=== PATIENT | male | born 1965 | race Caucasian/White ===

== ENCOUNTER 2023-12-25 08:59 | Outpatient (CLI) | payer OTHER, SELFPAY | END 2023-12-25 09:00 | disposition home or self-care (01) | LOC: AMB 12-30 07:32 | PROVIDERS: Visit Provider Student in an Organized Health Care Education/Training Program | DX: R55 Syncope and collapse (principal) | CPT/HCPCS: A0998 ==

== ENCOUNTER 2025-03-12 13:49 | Outpatient (CLI) | payer SELFPAY | END 2025-03-12 13:50 | disposition home or self-care (01) | LOC: AMB 03-15 11:24 | PROVIDERS: PCP Family Medicine; Visit Provider Student in an Organized Health Care Education/Training Program | DX: R07.89 Other chest pain (principal) | CPT/HCPCS: A0425; A0427 ==

== ENCOUNTER 2025-03-12 14:22 | Emergency (ER) | payer SELFPAY ==
--- OUTSIDE RECORDS SUMMARY | 2025-03-12 14:24 | XMS_ITS | Clinical Summary ---
Author Organization [facility] Address [address] [place] [id number] Care Team Providers Care [employer]obile Le[employer] Supervisor Name Role Phone Antonio Dailey MD Primary Care Provider [phone] Allergies Active Allergy Reactions Criticality Noted Date Comments Ampicillin Hives 04/17/2019 Azithromycin Palpitations 01/07/2024 Couch dizziness, heightened anxiety like symptoms within minutes of taking the dose Medications losartan 25 mg tabletIndications :Essential hypertension Take 1 Tablet (25 mg) by mouth once daily. 90 Tablet 12/23/2024 Active amLODIPine 5 mg tabletIndications :Essential hypertension Take 1 Tablet (5 mg) by mouth once daily. 90 Tablet 12/23/2024 Active Active Problems Problem Noted Date Diagnosed Date Right knee pain 07/10/2019 Adenomatous colon polyp 07/10/2019 Overview (07/10/2019): Colonoscopy 06/2019 polyp, repeat in 5 years Essential hypertension 06/26/2019 Overview (06/26/2019): Started on Amlodipine on 06/26/2019. Lateral epicondylitis of right elbow 06/26/2019 Stress fracture, right tibia , subsequent encounter for fracture with routine healing 05/15/2019 Encounters Date Type Department Care Team Description 12/22/2024 Refill [facility] [place] [address] [place] [address] Antonio Dailey MD Refill Request (Amlodipine, Losartan) from Last 3 Months Immunizations Immunization Administration Dates Next Due COVID-19 vaccine (Stockleap 30mcg/0.3mL) P F, MDV 07/17/2021,12/24/2020 Influenza, IIV4 05/20/2020 Influenza, Injectable, Mdck, Quadrivalent, W/preservative 06/22/2022,05/20/2021 Tdap 02/09/2024 Zoster (Shingrix-RZV, recombinant) 02/09/2024, Family History Medical History Relation Name Comments Heart attack Father Cancer-colon Maternal Grandfather Dementia Maternal Grandmother Cancer-colon Other Relation Name Status Comments Father Alive Maternal Grandfather Maternal Grandmother Other Social History Tobacco Use Types Packs/Day Years Used Date Smoking Tobacco: Never Passive Smoke Exposure: Never Smokeless Tobacco: Never Tobacco Cessation:Counseling Given: Yes Alcohol Use Standard Drinks/Week Comments Never 0 (1 standard drink = 0.6 oz pur e alcohol) PHQ-2 Answer Date Recorded PHQ-2 TOTAL SCORE 1 02/09/2024 Social Connections Answer Date Recorded Do you often feel lonely or isolated from those around you? 0 01/07/2024 Financial Resource Strain Answer Date R ecorded Difficulty of Paying Living Expenses 3 01/07/2024 Difficulty of Paying Living Expenses Not on file 01/07/2024 Food Insecurity Answer Date Recorded Do you worry your food will run out before you are able to buy more? 1 01/07/2024 Transportation Needs Answer Date Record ed Does lack of transportation keep you from medica l appointments? 1 01/07/2024 Does lack of transportation keep you from work, meetings or getting things that you need? 1 01/07/2024 Housing Stability Answer Date Recorded What is your housing situation today? 1 01/07/2024 Utilities Answer Date Recorded Do you have trouble paying f or utilities (for example, heat, electricity, water, phone)? 1 01/07/2024 Sex and Gender Information Value Date Recorded Sex Assigned at Not on file Legal Sex Male 1:17 PM CDT Gender Identity Not on file Sexual Orientation Not on file Obstetrics History Last Filed Vital Signs Vital Sign Reading Time Taken Comments Blood Pressure 130/80 05/05/2024 1:21 PM CDT Pulse 61 05/05/2024 12:53 PM CDT Temperature 36.4 C (97.5 F) 02/09/2024 9:10 AM CDT Respiratory Rate 20 05/15/2019 1:30 PM CDT Oxygen Saturation 98% 05/05/2024 12: 53 PM CDT Inhaled Oxygen Concentration - - Weight 127.8 kg (281 lb 12.8 oz) 2023 12:53 PM CDT Height 178.3 cm (5' 10.2) 05/05/2024 1 2:53 PM CDT Body Mass Index 40.2 05/05/2024 12:53 PM CDT Plan of Treatment Health Maintenance Due Date Last Done Comments HIV for age 15-65 1981 Hepatitis C screening for ag e 18-79 1984 Hepatitis B series for 19+ ( 1 of 3 - 19+ 3-dose series) 1985 Pneumococcal series for age 50+ (1 of 1 - PCV) 2016 COVID-19 vaccine series ( season) 2024 06/22/2022, 07/17/2021, 12/24/2020 Lipids for age 45-75 05/11/2024 05/11/2019 Colonoscopy through age 75 07/07/202407/07, 07/07/2019, 07/07/2019 Depression screening for age 12+ 02/08/2025 02/09/20 24, 07/24/2019 Influenza Vaccine (#1) 2025 2, 05/20/2021, 05/20/2020 BMI (ht and wt on same day) for age 18+ 05/05/2025 05/05/2024, 02/09/2024, 09/11/2019, Additional history exists Tetanus booster 02/08/2034 02/09/2024 Zoster (shingles) series for age 50+ Completed 02/09/2024, 07/31/2019 Procedures Procedure Name Priority Date/Time Associated Diagnosis Comments COLONOSCOPY SCREENING Routine 07/07/2019 8:30 AM CONCERT OR LECTURE HALL MANAGER Screening for colon cancer LIPID PANEL W REFLEX MEASURED LDL Routine 05/11/2019 7:34 AM CDT Lipid screening from Last 3 Months or Most Recently Relevant to Health Maintenance Results * COLONOSCOPY SCREENING (07/07/2019 8:30 AM CONCERT OR LECTURE HALL MANAGER) us Antonio Dailey MD GI PROCEDURE ORD Final Res ult * (ABNORMAL) LIPID PANEL W REFLEX MEASURED LDL (05/11/2019 7:34 AM CDT) CHOLESTEROL,TOTAL 208(H) 100 - 199 mg/dL 05/11/2019 3:32 PM CDT [facility] TRIGLYCERIDES 163(H) <150 mg/dL 05/11/2019 3:32 PM CDT [facility] HDL CHOLESTEROL 49 >40 mg/dL 9 3:32 PM CDT [facility] NON-HDL CHOLESTEROL 159(H) <145 mg/dl 05/11/2019 3:32 PM CDT [facility] CHOL/HDL RATIO 4.24 <4.50 05/11/2019 3:32 PM CDT [facility] LDL CHOLESTEROL 126 <=130 mg/dL 05/11/2019 3:32 PM CDT [facility] PROVIDER ORDERED STATUS RANDOM 05/11/2019 3:32 PM CDT [facility] Blood BLOOD SPECIMEN / Unknown Venipuncture / Unknown 05/11/2019 7:34 AM CDT 05/11/2019 7:34 AM CDT us Antonio Dailey MD CHEMISTRY Final Resu lt [facility] [address] [place] [address], [place] from Last 3 Months or Most Recently Relevant to Health Maintenance Insurance BLUE CROSS OF NON-MA-ITS Care Teams Automobile Leasing Supervisor Relationship Specialty Start Date End Date Antonio Dailey MD [address] [place] [address] PCP - General Family Practice 04/05/19
[2025-03-12 14:34] VITALS: BP 166/97; PULSE 63; RESP 18; TEMP 36.1; O2SAT 96; BMI 36.6
--- NOTE | 2025-03-12 14:44 | CRLHL7_ITS ---
For Patients: As a result of the Cures Act, medical imaging exams and procedure reports are released immediately into your electronic medical record. You may view this report before your referring provider. If you have questions, please contact your health care provider. INDICATION: Chest pain and palpitations COMPARISON: None. TECHNIQUE: PA and lateral 2 view chest. FINDINGS: Lung volumes are good. No focal or diffuse opacities. No pulmonary edema. No pleural effusion. No pneumothorax. No pneumomediastinum. Normal cardiomediastinal silhouette. Bones: Thoracic dish. Degenerative change in the spine. No acute appearing finding. IMPRESSION: Lungs clear. No acute appearing findings. Dictated by Shannon Mcgrath MD @ 03/12/2025 3:49:10 PM (Electronically Signed)
--- NOTE | 2025-03-12 14:52 | ED.CHESTPAIN ---
HPI - Chest Pain General Date Seen: 03/12/25 Chief Complaint: Chest Pain Stated Complaint: Chest pain Time Seen by Provider: 03/12/25 14:25 Source: patient and EMS Mode of arrival: EMS Limitations: no limitations History of Present Illness HPI narrative: Patient is a 59-year-old male with a history of hypertension presenting to the emergency department for chest pain. He states he was coming in from fishing when he started to notice some jaw pain bilaterally. He then started speaking to someone on the phone and started having some midsternal pressure sensation in his chest. Denies ever having pain like this before but states his father had a previous DC and states he describes the symptoms as similar so he called the ambulance. Took some aspirin at home and states the chest pain only last about 10 or 15 minutes in the jaw pain was gone by the time he got into the ambulance. Overall symptoms started about 2 hours prior to my conversation with the patient. He denies any associated shortness of breath, headache, lightheadedness, dizziness, weakness, numbness, abdominal pain, fevers, chills, dysuria, shoulder pain. Pain did not seem to radiate anywhere else. States he is now feeling asymptomatic. Only medical issue is hypertension and sees his primary care provider at least once a year. No other concerns noted Related Data Home Medications ?Medication ?Instructions ?Recorded ?Confirmed chlorpheniramine-dextromethorp PO 12/25/23 12/25/23 [[facility] NyQuil Cold-C] dextromethorphan polistirex PO 12/25/23 12/25/23 [Robitussin ER] amlodipine 5 mg tablet 5 mg PO DAILY 03/12/25 03/12/25 losartan 25 mg tablet 25 mg PO DAILY 03/12/25 03/12/25 Previous Rx's ?Medication ?Instructions ?Recorded benzonatate 200 mg capsule 200 mg PO QHS PRN cough #10 caps 12/25/23 Allergies Allergy/AdvReac Type Severity Reaction Status Date / Time azithromycin (From Zithromax) Allergy panic Verified 03/12/25 14:38 attacks Penicillins Allergy Verified 03/12/25 14:38 Review of Systems Status of ROS Reports: 10 or more systems reviewed and unremarkable except as noted in History and below PFSH PFSH Social History Smoking Status: Never smoker Do you use any of these nicotine containing products: None Second hand tobacco smoke exposure: No How often do you have a drink containing alcohol: monthly or less How often do you have six or more drinks on one occasion: Never AUDIT-C Alcohol total score: 1 Non-prescribed substance use: denies use service: No Exam Narrative Exam Narrative: Const: Well-nourished, Well-developed, in no distress Eyes: PERRL, no conjunctival injection, and symmetrical lids HENT: Atraumatic external nose and ears. Moist mucous membranes. Neck: Symmetric, trachea midline, No thyromegaly. CVS: RRR, No murmurs or gallops. Peripheral pulses 2+ and equal in all extremities RESP: Unlabored respiratory effort. Clear to auscultation bilaterally. GI: Nontender/Nondistended, No rebound or guarding. MSK:Extremities w/o deformity, Normal Active ROM Skin: Warm, Dry. No rashes or lesions. Neuro: Normal Muscle tone, No focal neurological deficits. Psych: Awake, Alert, & Oriented x3. Appropriate mood and affect. Const Vital Signs, click to edit/add: Vital Signs - 24 hr 03/12/25 14:34 03/12/25 15:18 Temperature 97.0 F L 97.8 F Pulse Rate [Pulse Oximeter] 63 60 Respiratory Rate 18 16 Blood Pressure [Left Upper Arm] 166/97 H 134/82 Pulse Oximetry 96 97 Oxygen Delivery Method Room Air Room Air Course Vital Signs Vital signs: Initial Vital Signs Temperature 97.0 F L 03/12/25 14:34 Temperature Source Temporal Artery Scan 03/12/25 14:34 Pulse Rate 63 03/12/25 14:34 Pulse Rhythm Regular 03/12/25 14:34 Respiratory Rate 18 03/12/25 14:34 Blood Pressure 166/97 H 03/12/25 14:34 Blood Pressure Mean 120 H 03/12/25 14:34 Blood Pressure Position Supine 03/12/25 14:34 Pulse Oximetry 96 03/12/25 14:34 Oxygen Delivery Method Room Air 03/12/25 14:34 Vital Signs Temperature 97.0 F L 03/12/25 14:34 Pulse Rate 63 03/12/25 14:34 Respiratory Rate 18 03/12/25 14:34 Blood Pressure 166/97 H 03/12/25 14:34 Pulse Oximetry 96 03/12/25 14:34 Oxygen Delivery Method Room Air 03/12/25 14:34 Temperature 97.8 F 03/12/25 15:18 Pulse Rate 60 03/12/25 15:18 Respiratory Rate 16 03/12/25 15:18 Blood Pressure 134/82 03/12/25 15:18 Pulse Oximetry 97 03/12/25 15:18 Oxygen Delivery Method Room Air 03/12/25 15:18 MDM - Chest Pain MDM Narrative Medical decision making narrative: Patient is a 59-year-old male presenting for chest pain. The differential diagnosis of chest pain is broad and includes common etiologies such as musculoskeletal strain, GERD, pneumonia, etc. More serious etiologies considered include PE, coronary artery disease, pneumothorax, aortic dissection, aortic aneurysm. His overall doing well my concern for a PE, aortic dissection, aortic aneurysm is low. Review chest x-ray to look for signs of pneumonia or possibly small pneumothorax. EKG and troponin order to look for signs of coronary artery disease. Will also order CBC, BMP, magnesium and viral swabs. Patient's initial troponin shows no concerning findings. Initial EKG does show pedis show a T-wave inversion in V2 that is new. Rest of his lab work shows no concerning findings. Chest x-ray reviewed by myself and the radiologist shows no acute concerning abnormalities. Patient continues to be asymptomatic throughout his time in emergency department. Repeat troponin came back at 0.28 at the 3 hour reji. Patient also started complaining about jaw pain to his left jaw that returned after he was informed of the elevated troponin. Due to this I am concerned he needs to be transferred for cardiology. Heparin started. I spoke to Dr. Peralta who agrees. Cardiology also recommends to start him on a nitroglycerin drip. They will accept him for transfer. Patient's pain improved with the nitro. His vital signs are currently stable. Is satting well on room air. Lab Data Labs: Lab Results 03/12/25 03/12/25 03/12/25 Range/Units 14:33 14:45 15:05 WBC 7.13 (4.50-11.00) K/uL RBC 4.62 (4.30-5.90) m/uL Hgb 14.3 (13.5-17.5) gm/dL Hct 42.2 (37.0-53.0) % MCV 91 (80-100) fL MCH 31 (26-34) pg MCHC 34 (32-36) gm/dL RDW Coeff of Rula 12.3 (11.5-15.5) % Plt Count 279 (140-440) K/uL Neut % (Auto) 60.1 (42.0-72.0) % Lymph % (Auto) 25.4 (20-44) % [place] % (Auto) 10.7 (0.0-11.0) % Eos % (Auto) 3.1 (0.0-7.0) % Baso % (Auto) 0.6 (0.0-3.0) % Neut # (Auto) 4.29 (1.7-7.0) K/uL Lymph # (Auto) 1.81 (0.90-2.90) K/uL [place] # (Auto) 0.80 (0.00-0.90) K/UL Eos # (Auto) 0.22 (0.00-0.50) K/uL Baso # (Auto) 0.04 (0.00-0.30) K/uL Abs Immat Gran (auto) 0.01 (0.00-0.30) K/uL Imm/Tot Granulo (auto) 0.1 % Sodium 138 (135-149) mmol/L Potassium 3.8 (3.6-5.1) mmol/L Chloride 107 (96-114) mmol/L Carbon Dioxide 26 (20-32) mmol/L Anion Gap 5 L (7-15) mEq/L BUN 31 H (7-30) mg/dL Creatinine 1.0 (0.5-1.5) mg/dL Estimated Creat Clear 88.38 Estimated GFR 87 ml/min Glucose 103 (60-115) mg/dL Calcium 9.5 (8.4-10.6) mg/dL Magnesium 2.2 (1.5-2.6) mg/dL Troponin I 0.03 (0.01-0.04) ng/mL SARS-CoV-2 (PCR) Negative SARS-CoV-2 (Negative) Influenza Type A (PCR) Negative PCR FLU A (Negative) Influenza Type B (PCR) Negative PCR FLU B (Negative) RSV (PCR) Negative PCR RSV (Negative) POC Troponin I 0.03 (0.01-0.04) ng/ml 03/12/25 Range/Units 17:25 WBC (4.50-11.00) K/uL RBC (4.30-5.90) m/uL Hgb (13.5-17.5) gm/dL Hct (37.0-53.0) % MCV (80-100) fL MCH (26-34) pg MCHC (32-36) gm/dL RDW Coeff of Rula (11.5-15.5) % Plt Count (140-440) K/uL Neut % (Auto) (42.0-72.0) % Lymph % (Auto) (20-44) % [place] % (Auto) (0.0-11.0) % Eos % (Auto) (0.0-7.0) % Baso % (Auto) (0.0-3.0) % Neut # (Auto) (1.7-7.0) K/uL Lymph # (Auto) (0.90-2.90) K/uL [place] # (Auto) (0.00-0.90) K/UL Eos # (Auto) (0.00-0.50) K/uL Baso # (Auto) (0.00-0.30) K/uL Abs Immat Gran (auto) (0.00-0.30) K/uL Imm/Tot Granulo (auto) % Sodium (135-149) mmol/L Potassium (3.6-5.1) mmol/L Chloride (96-114) mmol/L Carbon Dioxide (20-32) mmol/L Anion Gap (7-15) mEq/L BUN (7-30) mg/dL Creatinine (0.5-1.5) mg/dL Estimated Creat Clear Estimated GFR ml/min Glucose (60-115) mg/dL Calcium (8.4-10.6) mg/dL Magnesium (1.5-2.6) mg/dL Troponin I 0.28 H* (0.01-0.04) ng/mL SARS-CoV-2 (PCR) (Negative) Influenza Type A (PCR) (Negative) Influenza Type B (PCR) (Negative) RSV (PCR) (Negative) POC Troponin I (0.01-0.04) ng/ml Imaging Data Chest x-ray: Attestation: I have reviewed the pertinent imaging results. Radiologist's impression: Lungs clear. No acute appearing findings. Dictated by Shannon Mcgrath MD @ 03/12/2025 3:49:10 PM ECG Data Attestation: I personally reviewed and interpreted this ECG as follows: Prior ECG tracings: available for review Interpretation: Initial EKG and it 14:30: Normal sinus rhythm with a rate of 69 beats per minute, normal intervals, normal axis, no ST abnormalities. There is a T-wave inversion V2 that is new compared to previous EKG on file Repeat EKG at 18:30: Normal sinus rhythm with a rate of 60 beats per minute, normal intervals, normal axis, no ST abnormalities. The T-wave inversion in V2 persist Critical Care Time Critical Care Time Critical Care Time: Yes Attestation: The patient required my highest level preparedness to intervene emergently and I personally spent this critical care time directly and personally managing the patient. This critical care time included: Obtaining a history; Examining the patient; Pulse oximetry; Ordering and reviewing of studies; Arranging urgent treatment with development of a management plan; Evaluation of patients response to treatment; Frequent reassessment discussions with other providers. This critical care time was performed to assess and manage the high probability of imminent life-threatening deterioration that could result in multiorgan failure. It was exclusive of separate billable procedures and treating other patients and teaching time. Total Critical Care Time in Minutes: 41 Discharge Plan Discharge Clinical Impression: Acute non-ST elevation myocardial infarction (NSTEMI) Patient Disposition: [facility] Condition: Stable Prescriptions: No Action dextromethorphan polistirex [Robitussin ER] PO chlorpheniramine-dextromethorp [[facility] NyQuil Cold-C] PO benzonatate 200 mg capsule 200 mg PO QHS PRN (Reason: cough) Qty: 10 0RF amlodipine 5 mg tablet 5 mg PO DAILY losartan 25 mg tablet 25 mg PO DAILY Stand Alone Forms: [employer] Info Instructions
[2025-03-12 15:03] LABS: Hematocrit 42.2 % (37.0-53.0); Hemoglobin* 14.3 gm/dL (13.5-17.5); Immature Granulocytes Abs Auto 0.01 K/uL (0.00-0.30); Immature Granulocytes Pct Auto 0.1 %; Lymphocytes Absolute Auto 1.81 K/uL (0.90-2.90); Mean Corpuscular HGB Conc 34 gm/dL (32-36); Mean Corpuscular Hemoglobin 31 pg (26-34); Mean Corpuscular Volume 91 fL (80-100); RDW Coefficient of Variation % 12.3 % (11.5-15.5); Red Blood Count 4.62 m/uL (4.30-5.90); White Blood Count* 7.13 K/uL (4.50-11.00)
[2025-03-12 15:06] LABS: Chloride* 107 mmol/L (96-114); Potassium* 3.8 mmol/L (3.6-5.1); Sodium* 138 mmol/L (135-149)
[2025-03-12 15:09] LABS: Anion Gap 5 mEq/L (7-15); Blood Urea Nitrogen* 31 mg/dL (7-30); Calcium* 9.5 mg/dL (8.4-10.6); Carbon Dioxide* 26 mmol/L (20-32); Creatinine* 1.0 mg/dL (0.5-1.5); Est. Creatinine Clearance* 88.38; Estimated Glomerular Filt Rate 87 ml/min; Glucose* 103 mg/dL (60-115)
[2025-03-12 15:18] VITALS: BP 134/82; PULSE 60; RESP 16; TEMP 36.6; O2SAT 97
[2025-03-12 15:21] LABS: Slide Review Reflex No
[2025-03-12 15:55] LABS: PCR FLU A Negative PCR FLU A (Negative); PCR FLU B Negative PCR FLU B (Negative); PCR RSV Negative PCR RSV (Negative); SARS PCR* Negative SARS-CoV-2 (Negative)
[2025-03-12 16:00] LABS: Troponin, Point-of-Care* 0.03 ng/ml (0.01-0.04)
[2025-03-12] MEDS: NITROGLYCERIN 0.4 MG TAB.SUBL SUBLINGUAL (19:05)
[2025-03-12] MEDS: HEPARIN 5,000 UNIT/0.5 ML INJ 4000 UNIT IVP (19:35)
[2025-03-12] MEDS: HEPARIN 25,000 UNIT/500 ML BAG 20 UNIT IV (19:36)
[2025-03-12 20:52] LABS: Hematocrit 42.7 % (37.0-53.0); Hemoglobin* 14.7 gm/dL (13.5-17.5); Mean Corpuscular HGB Conc 34 gm/dL (32-36); Mean Corpuscular Hemoglobin 31 pg (26-34); Mean Corpuscular Volume 91 fL (80-100); Red Blood Count 4.69 m/uL (4.30-5.90); White Blood Count* 7.44 K/uL (4.50-11.00)
[2025-03-12 20:56] LABS: Slide Review Reflex No
[2025-03-12 21:42] LABS: INR 0.99 (0.91-1.10); Prothrombin Time 13.9 Seconds
--- NOTE | 2025-03-19 12:06 | ED.NURSE ---
Pt calling to inquire about which staff cared for him during his visit. Pt states he received excellent care and would like to thank staff. Call forwarded to ER director.
== END 2025-03-12 21:00 | disposition short-term general hospital (02) ==
PROVIDERS: Emergency Provider Student in an Organized Health Care Education/Training Program; PCP Family Medicine
DX: I21.4 Non-ST elevation (NSTEMI) myocardial infarction (principal); I10 Essential (primary) hypertension; Z79.899 Other long term (current) drug therapy
CPT/HCPCS: 36415; 71046; 80048; 83735; 84484; 85025; 85027; 85610; 85730; 87631; 93005; 99285; 99291; A9270; J1644

== ENCOUNTER 2025-03-12 20:42 | Outpatient (CLI) | payer SELFPAY | END 2025-03-12 20:43 | disposition home or self-care (01) | LOC: AMB 03-15 13:28 | PROVIDERS: PCP Family Medicine; Visit Provider Family Medicine | DX: I21.4 Non-ST elevation (NSTEMI) myocardial infarction (principal) | CPT/HCPCS: A0425; A0434 ==